=== PATIENT | female | born 1965 | race Caucasian/White ===

== ENCOUNTER 2021-04-03 23:42 | Observation (INO) ==
[2021-04-03] MEDS ORDERED: Aspirin 325 MG TABLET PO ONE (23:59)
[2021-04-04 00:20] LABS: Basophils % 0.4 %; Eosinophils # 0.3 K/mcL (0.0-0.6); Hematocrit 36.9 % (35.3-44.9); Hemoglobin 11.9 g/dL (11.5-15.4); Immature Granulocytes % 1.5 % (0-4); Lymphocytes # 1.7 K/mcL (0.6-4.6); Lymphocytes % 24.7 %; Mean Corpuscular HGB Conc 32.2 g/dL (31.6-35.5); Mean Corpuscular Hemoglobin 27.5 pg (28.0-33.3); Mean Corpuscular Volume 85.4 fL (83.0-100.0); Mean Platelet Volume 9.9 fL (9.4-12.4); Monocytes # 0.5 K/mcL (0.0-1.3); Monocytes % 7.3 %; Neutrophils # 4.2 K/mcL (1.6-8.9); Platelet Count 159 K/mcL (140-400); Red Blood Count 4.32 M/mcL (3.82-4.97); Red Cell Distribution Width 12.6 % (11.5-14.5); Segmented Neutrophils % 61.1 %; White Blood Count 6.9 K/mcL (4.3-11.1)
[2021-04-04 00:37] LABS: Magnesium 1.6 mg/dL (1.6-2.6)
[2021-04-04 00:38] LABS: Alanine Aminotransferase 17 Units/L (7-52); Albumin 4.3 g/dL (3.5-5.7); Albumin/Globulin Ratio 1.3 (1.1-2.2); Alkaline Phosphatase 89 Units/L (34-104); Aspartate Amino Transferase 18 Units/L (13-39); BUN/Creatinine Ratio 19 (6-26); Bilirubin,Total 0.3 mg/dL (0.3-1.0); Blood Urea Nitrogen 18 mg/dL (6-20); Calcium 10.8 mg/dL (8.6-10.3); Carbon Dioxide 34 mEq/L (23-29); Chloride 95 mEq/L (98-107); Globulin 3.2 g/dL (2.4-3.5); Glucose 112 mg/dL (70-105); Osmolality,Calculated 283 (280-300); Potassium 3.5 mEq/L (3.5-5.1); Sodium 135 mEq/L (136-145); Total Protein 7.5 g/dL (6.4-8.9); eGFR For African Americans > 60 (> 60); eGFR For Non-African Americans > 60 (> 60)
[2021-04-04 00:38] LABS: Amphetamine Screen,Urine Negative ng/mL (Cutoff=1000); Barbiturate Screen,Urine Negative ng/mL (Cutoff=200); Benzodiazepines Screen,Urine Negative ng/mL (Cutoff=200); Cannabinoid Screen,Urine Negative ng/mL (Cutoff = 50); Cocaine Screen,Urine Negative ng/mL (Cutoff= 300); Opiate Screen,Urine Negative ng/mL (Cutoff=300); Phencyclidine Screen,Urine Negative ng/mL (Cutoff=25)
[2021-04-04 00:39] LABS: Troponin I < 0.03 ng/mL (< 0.04)
[2021-04-04 00:53] LABS: Thyroid Stimulating Hormone 1.146 mcIU/mL (0.340-5.600)
[2021-04-04 01:08] LABS: INR 1.2; Prothrombin Time 13.3 Seconds (9.4-12.1)
[2021-04-04 01:11] LABS: Activated Partial Thrombo Time 38.7 Seconds (26.0-36.0)
[2021-04-04] MEDS ORDERED: Magnesium Oxide 400 MG TABLET PO ONE (01:22)
[2021-04-04] MEDS ORDERED: Potassium Chloride Elixir 20 MEQ/15 ML UDC PO ONE (01:22)
[2021-04-04] MEDS ORDERED: Magnesium Oxide 400 MG TABLET PO SCH ×2 (02:00→09:00)
[2021-04-04] MEDS ORDERED: Naloxone 0.4 MG/ML INJ IVP PRN (03:47)
[2021-04-04] MEDS ORDERED: Ondansetron 4 MG/2 ML VIAL IVP PRN (03:47)
[2021-04-04] MEDS ORDERED: Mag Hydrox/Al Hydrox/Simeth 30 ML UDC PO PRN (03:47)
[2021-04-04] MEDS ORDERED: *HR* Enoxaparin 40 MG/0.4 ML SYRINGE SQ SCH (07:00)
[2021-04-04] MEDS ORDERED: Aspirin 81 MG TAB.CHEW PO SCH (07:00)
[2021-04-04] MEDS ORDERED: lisinopriL 10 MG TABLET PO SCH (09:00)
[2021-04-04 11:53] VITALS: BP 115/74; PULSE 78; RESP 16; TEMP 98; O2SAT 93
[2021-04-04] MEDS ORDERED: traZODone 50 MG TABLET PO SCH (21:00)
== END 2021-04-04 15:15 | disposition home or self-care (01) ==
LOC: INPGRE 23:42 → EMEROOGRE 23:42 → INPGRE 04-04 03:59
PROVIDERS: ADMIT Internal Medicine; ATTEND Internal Medicine